=== PATIENT | male | born 1965 | race Caucasian/White ===

== ENCOUNTER 2016-10-18 10:24 | Emergency (ER) | payer MEDICARE, MEDICAID ==
[2016-10-18 10:31] VITALS: TEMP 97.6; BMI 31.1
[2016-10-18] MEDS ORDERED: NS 1,000 ML IV ONE ×2 (10:36→12:10)
[2016-10-18 11:13] LABS: AUTOMATED BASOPHIL 1.3 % (0-2); AUTOMATED EOSINOPHIL 0.7 % (0-5); AUTOMATED LYMPH 26.7 % (17-44); AUTOMATED MONOCYTE 6.8 % (3-10); AUTOMATED NEUTROPHIL 64.5 % (45-76)
--- NOTE | 2016-10-18 11:20 | EDPRACDOC ---
- General Information Chief Complaint: Blood Pressure (Problems) Stated Complaint: LOW BLOOD PRESSURE Time Seen by Provider: 10/18/16 10:35 Information Source: Patient Mode Of Arrival: Car Home Medications: Home Medications Aspirin [Aspirin, Chewable] 81 mg PO DAILY 12/11/12 Atorvastatin Calcium [Lipitor] 40 mg PO QHS 12/11/12 Carvedilol [Coreg] 3.125 mg PO BID 12/11/12 Clopidogrel Bisulfate [Clopidogrel] 75 mg PO DAILY 12/11/12 Duloxetine HCl [Cymbalta] 60 mg PO DAILY 12/11/12 Fenofibrate [Tricor] 145 mg PO DAILY 12/11/12 Fluticasone/Salmeterol [Advair 250-50 Diskus] 1 each IH BID PRN 12/11/12 Lisinopril [Zestril] 5 mg PO HS 12/11/12 Nitroglycerin [Nitrostat] 0.4 mg SL [id number] PRN 12/12/12 Albuterol/Ipratropium Neb [Duoneb] 3 ml NEB Q4H PRN 03/28/13 Gabapentin [Neurontin] 600 mg PO QID 03/12/15 Nebulizer [Erapid Nebulizer] 1 each MC UNK 03/12/15 Lorton-3 Fatty Acids/Fish Oil [Fish Oil 1,000 mg Capsule] 2 each PO BID 03/12/15 Tizanidine HCl [Zanaflex] 4 mg PO TID PRN 03/12/15 Amitriptyline HCl [Elavil] 25 mg PO HS PRN 10/11/15 Ipratropium/Albuterol Sulfate [Combivent Respimat] 1 puff INH QID PRN 10/11/15 Lamotrigine [Lamictal] 100 mg PO DAILY 10/11/15 Oxycodone (OxyCONTIN) Ext Rel [Oxycontin] 20 mg PO BID 10/11/15 Oxycodone HCl/Acetaminophen [Percocet 10-325 mg Tablet] 1 tab PO Q8H PRN Pantoprazole Sodium [Protonix] 40 mg PO DAILY 07/28/16 Amoxicillin [Amoxil] 875 mg PO BID 10/18/16 Guaifenesin/Codeine Phosphate [Cheratussin AC Syrup] 10 ml PO Q6H PRN 10/18/16 Allergies/Adverse Reactions: Allergies Allergy/AdvReac Type Severity Reaction Status Date / Time zolpidem tartrate Allergy HALLUCINATI Verified 10/18/16 10:30 [From José Miguelien] ONS - History of Present Illness Onset: SUN Exact Onset of Symptoms: Unknown HPI: PT HAS BEEN FEELING DIZZY SINCE 10/16. PT SAID THAT HE PASSED OUT ON THE 5TH IN THE EVENING. PT DOES TAKE BP MEDS AND HAS BEEN TAKING HIS MEDS DIRECTED. PT WENT TO HIS PCP YESTERDAY AND BP WAS OK. HE HAD AN APPT WITH HIS ANKLE DR TODAY FOR A ROUTINE VISIT (POST-OP) AND HIS BP WAS LOW. HE WAS SENT HERE WHEN THE OFFICE SAW THAT. PT SAID HE FEELS WEAK, BUT DENIES ANY CP. Symptoms Started: Reports: Gradually Symptoms Description: Constant Weakness: Bilateral: Generalized Symptoms: Reports: Syncope, Weak ED Past Medical History - Patient Medical History Neurological History: Reports: Cerebrovascular Accident Cardiac History: Reports: Coronary Artery Disease, Hypertension, Congestive Heart Failure (HISTORY OF DILATED CARDIOMYOPATHY), Heart Attack (2004, 2007), Cardiac Catheterization (MULTIPLE LAST 05/26/14 DIFFUSE NON OBSTRUCTIVE CAD MILD GLOBAL LV DYSFUNCTI), Hypercholesterolemia, Pacemaker (2011 AICD) Respiratory History: Reports: Asthma, COPD, Emphysema GI/ History: Reports: Kidney Stones Musculoskeletal History: Reports: Arthritis Psychological History: Reports: Anxiety. Denies: Depression, Substance Use Disorder Systemic History: Reports: Diabetes. Denies: Cancer, Anemia Surgical History: Reports: Cholecystectomy, Cardiac Catheterization (MULTIPLE LAST 05/26/14 DIFFUSE NON OBSTRUCTIVE CAD MILD GLOBAL LV DYSFUNCTI), Other (KNEE , PACEMAKER PLACEMENT, PACEMAKER PLACEMENT, STENT PLACEMENT, ANKLE) - Family Medical History Reports: Hypertension (PARENTS), Diabetes (MOTHER), Cancer (MOTHER SKIN CA), Cardiac Disorders (MOTHER). Denies: Stroke - Social Medical History Smoking Status: Heavy tobacco smoker (5 or more cigarettes/day or daily pipe/ cigar) Social History: Denies: Other Substance Use ETOH: None Substance Abuse: None Lives In: Home EDM Review of Systems - Review of Systems ROS Negative Except as Marked: Yes All systems reviewed and were negative except as marked Constitutional: Weakness - Physical Exam Constitutional: Alert (Awake), No apparent distress Oriented to: Time, Person, Place Last recorded Vital Signs: Last Vital Signs Temp 97.6 F 10/18/16 10:28 Pulse 62 10/18/16 10:28 Resp 18 10/18/16 10:28 BP 81/53 L 10/18/16 10:28 Pulse Ox 96 10/18/16 10:28 Oxygen Pulse Oxygen Saturation 96 O2 Device Oxygen Flow Rate Fraction of Inspired Oxygen ( FIO2) - HEENT Head: Normal ( normocephalic) Eye Exam: Normal (PERRL, EOMI, Sclera white) Oropharynx: Normal (Pharynx:Moist without exudate,Gums-no swelling) ENT EAC: Normal TMJ: Normal Nose: No Symptoms Reported (septum midline) Neck: Normal (FROM, trachea at midline) - Respiratory/Cardiovascular Respiratory: Normal - CTA (BBS clear to auscultation without adventitious sounds ) Cardiovascular: Normal (RRR without murmur, gallop or rub) - GI Auscultation: Normal (NABS) Palpation: Normal (Soft,No rebound or guarding, non distended) Tenderness: Non tender Lawson's Sign: Negative - Musculoskeletal Back: Normal (Non-Tender) Extremities: Normal (Normal tone, Pulses 2+ No cyanosis or edema, FROM) - Integumentary Skin: Normal, Warm, Dry Lymphatics: Normal (no adenopathy) - Neurologic Memory Impaired: Normal Motor Function: Normal (Normal tone, Pulses 2+ No cyanosis or edema, FROM) Cranial Nerve: Normal (CN II-X11 intact sensation, strength 5/5) Cerebellar: Normal Mood Description: Normal Thought: Coherent Perception: Normal - Re-evaluation Re-evaluation 1 Re-evaluation Time: 13:30 (improved) - Results 10/18/16 11:00 10/18/16 11:00 WBC 9.7 xk/uL (3.8-10.8) 10/18/16 11:00 RBC 3.86 xM/uL (4.70-6.10) L 10/18/16 11:00 Hgb 11.8 g/dL (14.0-18.0) L 10/18/16 11:00 Hct 35.5 % (42-52) L 10/18/16 11:00 MCV 92 fL (80-94) 10/18/16 11:00 MCH 30.6 pg (27-32) 10/18/16 11:00 MCHC 33.3 g/dl (33-36) 10/18/16 11:00 RDW 15.2 % (11.5-14.5) H 10/18/16 11:00 Plt Count 364 xk/uL (130-400) 10/18/16 11:00 MPV 7.0 fL (7.4-10.4) L 10/18/16 11:00 Neut % (Auto) 64.5 % (45-76) 10/18/16 11:00 Lymph % (Auto) 26.7 % (17-44) 10/18/16 11:00 [place] % (Auto) 6.8 % (3-10) 10/18/16 11:00 Eos % (Auto) 0.7 % (0-5) 10/18/16 11:00 Baso % (Auto) 1.3 % (0-2) 10/18/16 11:00 Absolute Neuts (auto) 6.21 xk/uL (1.7-8.2) 10/18/16 11:00 Absolute Lymphs (auto) 2.52 xk/uL (0.65-4.75) 10/18/16 11:00 Lab Results 10/18/16 11:00 WBC 9.7 RBC 3.86 L Hgb 11.8 L Hct 35.5 L MCV 92 MCH 30.6 MCHC 33.3 RDW 15.2 H Plt Count 364 MPV 7.0 L Neut % (Auto) 64.5 Lymph % (Auto) 26.7 [place] % (Auto) 6.8 Eos % (Auto) 0.7 Baso % (Auto) 1.3 Absolute Neuts (auto) 6.21 Absolute Lymphs (auto) 2.52 - EKG EKG #1 EKG Time: 11:13 -: Yes EKG interpreted by me Rate: bpm: 56 [place]: Normal Rhythm: SB, PACs Block: None Hypertrophy: None ST: Normal Comparison: 07/24/16 - Diagnostic Imaging Chest Image interpreted by: Radiologist No acute abnormalities. Decision Time to Discharge: 13:30 - Departure Yes I personally saw and evaluated the patient. Disposition: Home Condition: Fair Final Diagnosis: Hypotension Instructions: Hypotension (ED) Education/Counseling Given To: Patient, Family Member Education/Counseling Given Regarding: Diagnosis, Treatment, Follow Up Referrals: Kavin Soto II, MD [Primary Care Provider] - One Week Choco De Leon MD [Staff Physician] - One Week Prescriptions: No Action Fluticasone/Salmeterol [Advair 250-50 Diskus] 1 each IH BID PRN PRN Reason: Shortness Of Breath Fenofibrate [Tricor] 145 mg PO DAILY Lisinopril [Zestril] 5 mg PO HS Atorvastatin Calcium [Lipitor] 40 mg PO QHS Carvedilol [Coreg] 3.125 mg PO BID Duloxetine HCl [Cymbalta] 60 mg PO DAILY Clopidogrel Bisulfate [Clopidogrel] 75 mg PO DAILY Aspirin [Aspirin, Chewable] 81 mg PO DAILY Nitroglycerin [Nitrostat] 0.4 mg SL [id number] PRN PRN Reason: Chest Pain Or Discomfort Albuterol/Ipratropium Neb [Duoneb] 3 ml NEB Q4H PRN PRN Reason: Shortness Of Breath Tizanidine HCl [Zanaflex] 4 mg PO TID PRN PRN Reason: Muscle Spasms Gabapentin [Neurontin] 600 mg PO QID Lorton-3 Fatty Acids/Fish Oil [Fish Oil 1,000 mg Capsule] 2 each PO BID Nebulizer [Erapid Nebulizer] 1 each MC UNK Oxycodone (OxyCONTIN) Ext Rel [Oxycontin] 20 mg PO BID Ipratropium/Albuterol Sulfate [Combivent Respimat] 1 puff INH QID PRN PRN Reason: Shortness Of Breath Amitriptyline HCl [Elavil] 25 mg PO HS PRN PRN Reason: INSOMNIA Lamotrigine [Lamictal] 100 mg PO DAILY Pantoprazole Sodium [Protonix] 40 mg PO DAILY Oxycodone HCl/Acetaminophen [Percocet 10-325 mg Tablet] 1 tab PO Q8H PRN PRN Reason: Pain Amoxicillin [Amoxil] 875 mg PO BID Guaifenesin/Codeine Phosphate [Cheratussin AC Syrup] 10 ml PO Q6H PRN PRN Reason: Cough Additional Instructions: hold coreg and lisinopril for 2 days, then start coreg back if not dizzy. F/u with pcp to recheck bp.
[2016-10-18 11:26] LABS: PARTIAL THROMB. TIME 23.7 SEC (22-35); PT-INR 1.1
[2016-10-18 11:30] LABS: BLOOD UREA NITROGEN 11 MG/DL (9-20); CALCIUM 9.8 MG/DL (8.4-10.2); CALCULATED OSMOLALITY 271 MOs/Kg (270-290); CHLORIDE 100 mEq/L (98-107); GLUCOSE 146 mg/dL (70-99); SODIUM LEVEL 140 mEq/L (137-146); TOTAL PROTEIN 8.8 G/DL (6.3-8.2)
--- NOTE | 2016-10-18 12:06 | DIRPT ---
CLINICAL DATA: Hypotension, dizziness and syncope on 10/16/2016, weakness EXAM: PORTABLE CHEST 1 VIEW COMPARISON: Portable exam 1113 hours compared to 07/24/2016 FINDINGS: LEFT subclavian AICD leads project over RIGHT atrium and RIGHT ventricle unchanged. Normal heart size, mediastinal contours, and pulmonary vascularity. Lungs clear. No pleural effusion or pneumothorax. EKG leads project over chest. IMPRESSION: No acute abnormalities. Electronically Signed By: Tai Neal M.D. On: 10/18/2016 12:03
[2016-10-18 13:22] LABS: LEUKOCYTES/URINE NEG (NEGATIVE); NITRITE/URINE NEG (NEGATIVE); RBC/URINE 0-2 (0-2); URINE OCCULT BLOOD NEG (NEG/TRACE); WBC/URINE 0-2 (0-2)
[2016-10-18 14:35] VITALS: BP 125/41; PULSE 62
== END 2016-10-18 14:34 | disposition home or self-care (01) ==
LOC: ED 10:24
DX: I95.9 Hypotension, unspecified (principal); I25.10 Atherosclerotic heart disease of native coronary artery without angina pectoris; I10 Essential (primary) hypertension; I50.9 Heart failure, unspecified; E78.00 Pure hypercholesterolemia, unspecified; J44.9 Chronic obstructive pulmonary disease, unspecified; J45.909 Unspecified asthma, uncomplicated; E11.9 Type 2 diabetes mellitus without complications; F41.9 Anxiety disorder, unspecified; F17.200 Nicotine dependence, unspecified, uncomplicated; Z95.0 Presence of cardiac pacemaker; Z79.899 Other long term (current) drug therapy
CPT/HCPCS: 36415; 71010; 80053; 81001; 84484; 85025; 85610; 85730; 87040; 87086; 87186; 93005; 96360; 96361; 99284